=== PATIENT | male | born 2000 | race Hispanic/Latino ===

== ENCOUNTER 2023-09-12 11:28 | Emergency (ER) | payer OTHER ==
[~2023-09-12] VITALS: Ht 170.2 cm; Wt 74.8 kg
[2023-09-12 11:48] VITALS: BP 100/58; PULSE 88; RESP 16; O2SAT 97
[2023-09-12 13:01] LABS: APPEARANCE,URINE CLEAR (CLEAR); BILIRUBIN,URINE NEGATIVE (NEGATIVE); COLOR,URINE YELLOW (YELLOW); GLUCOSE, URINE (UA) NEGATIVE (NEGATIVE); KETONES,URINE NEGATIVE (NEGATIVE); LEUKOCYTE ESTERASE ,URINE 500 Leu/uL (NEGATIVE); NITRATE,URINE NEGATIVE (NEGATIVE); OCCULT BLOOD,URINE SMALL (NEGATIVE); PROTEIN,URINE 30 mg/dL (NEGATIVE); UROBILINOGEN,URINE 0.2 mg/dL (0.2-1.0)
[2023-09-12 13:06] LABS: ADD UA MICROSCOPIC YES
[2023-09-12 13:08] LABS: BACTERIA,URINE RARE /HPF (None Seen); MUCUS,URINE FEW LPF (None Seen); SQUAMOUS EPITHELIAL CELL,UR FEW /HPF (0-2)
== END 2023-09-12 13:12 | disposition left against medical advice (07) ==
LOC: EDH 11:28
DX: F41.9 Anxiety disorder, unspecified (principal); R42 Dizziness and giddiness; Z53.29 Procedure and treatment not carried out because of patient's decision for other reasons; Z88.0 Allergy status to penicillin
CPT/HCPCS: 81001; 87088; 93005

== ENCOUNTER 2023-11-19 19:07 | Emergency (ER) | payer OTHER ==
[~2023-11-19] VITALS: Ht 167.6 cm; Wt 74.8 kg
[2023-11-19] MEDS ORDERED: TETANUS/DIPHTHERIA TOXOID [ADULT] 0.5 ML VIAL IM ONE (19:30)
[2023-11-19] MEDS ORDERED: IBUPROFEN 600 MG TABLET PO ONE (19:30)
[2023-11-19] MEDS ORDERED: IBUP-2070 PO (20:07)
[2023-11-19 21:00] VITALS: BP 108/52; PULSE 80; RESP 18; O2SAT 98
== END 2023-11-19 21:00 | disposition home or self-care (01) ==
LOC: EDH 19:07
DX: S61.304A Unspecified open wound of right ring finger with damage to nail, initial encounter (principal); Z90.49 Acquired absence of other specified parts of digestive tract; Z88.0 Allergy status to penicillin; X58.XXXA Exposure to other specified factors, initial encounter; Y93.89 Activity, other specified; Y92.89 Other specified places as the place of occurrence of the external cause; Y99.8 Other external cause status
CPT/HCPCS: 73140; 90471; 90714